=== PATIENT | male | born 1990 | race Caucasian/White ===

== ENCOUNTER 2019-11-09 15:43 | Emergency (ER) | payer OTHER ==
[~2019-11-09] VITALS: Ht 185.4 cm; Wt 77.3 kg
[~2019-11-09 15:43] MED LIST: PERM60CR19 TP
[2019-11-09 16:08] VITALS: BP 116/68
[2019-11-09] MEDS ORDERED: TETanus/Pertussis (Acell)/Diphther VAC/PF (Tdap-Adult) 0.5ml syringe IMVAC ONE (16:35)
[2019-11-09] MEDS ORDERED: bacitracin 15gm ointment TP ONE (16:35)
[2019-11-09] MEDS ORDERED: IBUP-1984 PO (16:47)
[2019-11-09] MEDS ORDERED: CEPH250T PO (16:47)
== END 2019-11-09 17:06 | disposition home or self-care (01) ==
LOC: ER 15:44
DX: S61.011A Laceration without foreign body of right thumb without damage to nail, initial encounter (principal); Z79.899 Other long term (current) drug therapy; W27.8XXA Contact with other nonpowered hand tool, initial encounter; Y93.89 Activity, other specified; Y92.89 Other specified places as the place of occurrence of the external cause; Y99.8 Other external cause status
CPT/HCPCS: 90715; 99283